=== PATIENT | male | born 1975 | race Hispanic/Latino ===

== ENCOUNTER 2022-07-23 07:16 | Emergency (ER) | payer OTHER ==
[~2022-07-23] VITALS: Ht 162.6 cm; Wt 115.2 kg
[2022-07-23 07:52] LABS: ALBUMIN 4.3 g/dL (3.5-5.0); CREATININE 1.3 mg/dL (0.5-1.5); MAGNESIUM 1.5 mg/dL (1.80-2.40); POTASSIUM 4.7 mmol/L (3.5-5.1); TOTAL PROTEIN, SERUM 8.4 g/dL (6.0-8.3)
[2022-07-23] MEDS ORDERED: MAGNESIUM OXIDE 400 MG TABLET PO SCH (08:00)
[2022-07-23] MEDS ORDERED: MAGNESIUM OXIDE 400 MG TABLET PO ONE (08:00)
[2022-07-23 08:22] LABS: BASOPHILS % (AUTO) 0.3 % (0.0-5.0); EOSINOPHILS % (AUTO) 5.3 % (0.0-8.0); HEMATOCRIT 57.6 % (42-54); LYMPHOCYTES % (AUTO) 24.6 % (21.0-51.0); MEAN CORPUSCULAR HEMOGLOBIN 30.3 pg (27.0-33.0); MEAN CORPUSCULAR HGB CONC 34.7 g/dL (32.0-36.0); MEAN CORPUSCULAR VOLUME 87.4 fL (79-99); MONOCYTES % (AUTO) 7.1 % (3.0-13.0); NEUTROPHILS % (AUTO) 62.4 % (40.0-77.0); PLATELET COUNT (AUTO) 159 K/uL (130-400); RED BLOOD CELL COUNT(AUTO) 6.59 MIL/uL (4.50-6.20); RED CELL DISTRIBUTION WIDTH 12.2 % (11.0-15.5)
[2022-07-23] MEDS ORDERED: IOHEXOL 350 MG/ML 100ML INFUS..BTL IV ONE (08:51)
[2022-07-23] MEDS ORDERED: 0.9%NACL 1000ML 1,000 ML IV ONE (09:30)
[2022-07-23 09:58] LABS: PARTIAL THROMBOPLASTIN TIME 30.4 SEC (26.3-35.5)
[2022-07-23 10:02] LABS: INR > 7.00 (0.85-1.15); PROTHROMBIN TIME > 90.0 SEC (9.6-11.6)
[2022-07-23 10:25] LABS: INR 1.1 (0.85-1.15); PROTHROMBIN TIME 11.9 SEC (9.6-11.6)
[2022-07-23 10:26] LABS: PARTIAL THROMBOPLASTIN TIME 31.7 SEC (26.3-35.5)
[2022-07-23 11:41] VITALS: BP 114/81
[2022-07-23] MEDS ORDERED: IBUP-2077 PO (12:04)
[2022-07-23] MEDS ORDERED: IBUPROFEN 800 MG TAB PO ONE (12:30)
== END 2022-07-23 12:29 | disposition home or self-care (01) ==
LOC: EDH 07:16
DX: R07.81 Pleurodynia (principal); D75.1 Secondary polycythemia; E11.9 Type 2 diabetes mellitus without complications; E78.00 Pure hypercholesterolemia, unspecified; I10 Essential (primary) hypertension
CPT/HCPCS: 99285; 96360; 71270; 71045; 82550; 83735; 84484; 80053; 85025; 85378; 85610 ×2; 85730 ×2; 36415; 93005; J7030; Q9967